=== PATIENT | female | born 1950 | race Two or more races ===

== ENCOUNTER 2016-09-28 15:43 | Inpatient (IN) | payer BC, MEDICARE ==
[~2016-09-28] VITALS: Ht 149.9 cm; Wt 65.1 kg
--- NOTE | ~2016-09-28 | FD ---
ADMIT: 09/28/2016 RM/LOC: 530 [facility] MR#: [id number] 26[address] [facility] [address] [place] [id number] DEJON LOPEZ [address] [address] Final Diagnosis SEX: F AGE: 66 : 1950 ADMISSION DATE: 09/28/2016 DISCHARGE DATE: 09/29/2016 FINAL DIAGNOSES: 1. Acute low-grade recurrent pancreatitis. 2. Radiographic evidence of fatty liver. 3. Elevated liver enzymes, possibly related to #2. This will need followup as an outpatient. Wero Monaco MD/ kal JOB #: [id number] CC: Wero Monaco MD, Attending Physician Esequiel Segundo, Family Physician
[~2016-09-28 15:43] MED LIST: ATIVAN-DPS0.5 MG PO; CHILDREN'S ASPI81 MG PO; HYDROCODONE 5MG/5 MG PO; MAG-OX400 MG PO; NORVASC5 MG PO; PRILOSEC DPS20 MG PO; TENORMIN100 MG PO; TYLENOL DPS325 MG PO
[2016-09-30] MEDS ORDERED: LIPITOR DPS20 MG PO (07:09)
--- NOTE | 2016-09-30 09:10 | ER ---
ADMIT: 09/28/2016 RM/LOC: 530 [facility] MR#: [id number] 2620 [facility] [address] [place], [place] [address] DEJON LOPEZ [address] [address] Emergency Room Report SEX: F AGE: 66 : 1950 DATE: 09/28/2016 TIME: 1543 Please refer to my T-sheet for complete H and P. HISTORY OF PRESENT ILLNESS: Briefly, the patient is a 66-year-old who comes in with abdominal pain. It started last night. She has been a little bit nauseous, but no vomiting, maybe trace of diarrhea. She has had pancreatitis in the past. She has high cholesterol, high blood pressure, anxiety. She has not changed any medications recently and she is here for evaluation. She has also had her gallbladder removed. PHYSICAL EXAMINATION: VITAL SIGNS: Blood pressure is 148/74, pulse 78, respirations 16, temp 97.9, saturating 96%. GENERAL: No acute distress. HEENT: Grossly normal. LUNGS: Clear. HEART: Regular. ABDOMEN: Soft, mildly tender in the epigastric. No rebound. No guarding. Nondistended. SKIN: No rash. EMERGENCY DEPARTMENT COURSE: I gave her Zofran 4 ODT, originally a GI cocktail, her pain was still bothering her some. I gave her 1 L of normal saline bolus. We will titrate morphine. Her CBC came back normal. Chemistries normal except sodium 133 and lipase 693. UA was normal. AST was 48. ASSESSMENT: 1. Acute pancreatitis. 2. Abdominal pain. PLAN: Admit to the hospital. Mark Arvizu MD/ kal JOB #: [id number] CC: Wero Monaco MD, Attending Physician Ethan Segundo PA-C, Family Physician
--- NOTE | 2016-09-30 13:09 | HP ---
ADMIT: 09/28/2016 RM/LOC: 530 [facility] MR#: [id number] 2620 [facility] [address] [place], [place] [address] DEJON LOPEZ [address] [address] History and Physical SEX: F AGE: 66 : 1950 DATE OF SERVICE: CHIEF COMPLAINT/HISTORY OF PRESENT ILLNESS: This is a 66-year-old female with known history of at least 3 prior inpatient stays for pancreatitis, who presents with upper abdominal pain radiating into the back associated with nausea, but no vomiting. Symptoms started yesterday. She has had no diarrhea or bowel changes or urinary complaints or chills or fever with this. Dr. Arvizu evaluated in the emergency room. He felt she probably had recurrent pancreatitis, and I concur with that assessment. She was treated with IV morphine and some antiemetic, and she is feeling better. Her vital signs have been stable. PAST MEDICAL HISTORY: As noted 3 previous hospitalizations for pancreatitis, cause apparently felt to be idiopathic. I reviewed our office records and her primary provider, GOPAL Schneider, had tried to get her to go to [facility] for evaluation, but an appointment had been made, and [facility] had [facility] and no repeat appointment has been made. CHRONIC HEALTH PROBLEMS: GERD, hypertension, hyperlipidemia, anxiety; and type 2 diabetes, on diet measures only. PAST SURGICAL HISTORY: She has had cholecystectomy, tubal ligation, vein stripping, and colonoscopy (history of colon polyps). HABITS: Alcohol use is moderation. She does not smoke. SOCIAL HISTORY: I do not know her marital status. Occupation is employed at [employer]. MEDICATIONS: 1. Aspirin 81 mg daily. 2. Amlodipine 5 mg daily. 3. Atenolol 100 mg daily. 4. Lipitor 40 mg at bedtime. 5. Lorazepam 0.25 mg t.i.d. p.r.n. anxiety. 6. Omeprazole 40 mg daily. 7. Magnesium 400 mg daily. 8. Calcium and vitamin D 1 daily. 9. Fish oil one daily. ALLERGIES: NONE. FAMILY HISTORY: Positive for heart disease and hypertension in first-degree relatives. No known family history of pancreatitis. REVIEW OF SYSTEMS: CONSTITUTIONAL: No chills or fever. ENT: No complaints. EYES: No vision complaints. RESPIRATORY: No cough or shortness of breath. ADMIT: 09/28/2016 RM/LOC: 530 [facility] MR#: [id number] [address] [address] DEJON LOPEZ [address] [place] [address] History and Physical SEX: F AGE: 66 : 1950 CARDIOVASCULAR: No chest pain. GI: As in the above history. : No complaints. MUSCLE, BONE, AND JOINT: Also no acute complaints. NEURO/PSYCH: All negative. HEMATOLOGIC: No history of bleeding or blood clots. PHYSICAL EXAMINATION: GENERAL: She is comfortable. She has just had morphine, and she has significantly improved. VITAL SIGNS: I reviewed her vital signs. Sats were in the upper 90s, heart rate was in the 80s, blood pressure was in the normal range, but I do not have it at my disposal at this time. She was afebrile and she was not tachypneic. ENT: Her mucous membranes are moist. Hearing is normal. EYES: Pupils are equal and reactive to light. NECK: No masses or tenderness or lymphadenopathy or venous distention. HEART: Regular rhythm. I do not hear a murmur. BREASTS: Not examined. LUNGS: Clear throughout. Normal respiratory effort. BACK: Nontender to palpation. SPINE: Minor tenderness to percussion across her mid back. Most of her pain radiates to the left mid back. ABDOMEN: Bowel sounds are normal. Abdomen is not distended. Currently, she is pretty comfortable when I palpate her abdomen. She says she was having upper abdominal pain, right more than left, but as noted right now, not a dramatic amount of pain. Certainly, no guarding or rebound. No organomegaly. No lower abdominal pain. No inguinal masses. PELVIC AND RECTAL: Not performed. EXTREMITIES: Upper extremities, normal in appearance. Lower extremities, also unremarkable. No edema in her lower extremities. Pulses felt in her feet. May have some arthritic changes in her knees. SKIN: No rashes. NEURO: Grossly intact. PSYCH: She is calm, not anxious or depressed. PERTINENT LABORATORY DATA: Her CBC is unremarkable with a normal white count. Normal hemoglobin and platelets. Her urinalysis is clear and her metabolic panel also unremarkable with a creatinine of 0.8. Her lipase is 693, which is ADMIT: 09/28/2016 RM/LOC: 530 [facility] MR#: [id number] [facility] [address] [address] DEJON LOPEZ [address] [place] [address] History and Physical SEX: F AGE: 66 : 1950 twice normal. IMPRESSION: Suspect acute pancreatitis. PLAN: She is comfortable with the treatment Dr. Arvizu has started. We will continue IV fluids. IV morphine for pain management as needed. IV Pepcid and Zofran as needed. Hold her n.p.o. Tonight. Repeat her labs in the morning. Plan CT scan of the abdomen in the morning as well. Monitor other conditions. If her condition becomes more complicated in light of recurrent nature of this, might give consideration to transfer to [facility]. If she stabilizes rapidly, she can go as an outpatient. Still might give consideration to outpatient evaluation at [facility]. Wero Monaco MD/ kal JOB #: [id number] CC: Wero Monaco, Attending Physician Esequiel Segundo, Family Physician
== END 2016-09-29 17:18 | disposition home or self-care (01) | DRG 440 ==
LOC: ER 15:43 → 5MS 17:30
PROVIDERS: ADMIT Family Medicine
DX: K85.90 Acute pancreatitis without necrosis or infection, unspecified (principal); K76.0 Fatty (change of) liver, not elsewhere classified; I10 Essential (primary) hypertension; K86.1 Other chronic pancreatitis; K21.9 Gastro-esophageal reflux disease without esophagitis; E78.5 Hyperlipidemia, unspecified; F41.9 Anxiety disorder, unspecified; E11.9 Type 2 diabetes mellitus without complications; Z79.82 Long term (current) use of aspirin